=== PATIENT | male | born 1990 | race Caucasian/White ===

== ENCOUNTER 2016-08-17 10:23 | Day surgery (SDC) | payer BC ==
[~2016-08-17 10:23] MED LIST: Lactated Ringers 1,000 ML IV SCH; Sodium Chloride 0.9% 10 ML Syringe FLUSH PRN
[2016-08-17] MEDS ORDERED: fentaNYL 100 MCG/2 ML SDV ONE ×2 (11:10→11:32)
[2016-08-17] MEDS ORDERED: Propofol 200 MG/20 ML SDV ONE ×2 (11:10→11:33)
[2016-08-17] MEDS ORDERED: Lidocaine 2% 5 ML SDV ONE (11:10)
[2016-08-17] MEDS ORDERED: Midazolam 1 MG/ML 2 ML SDV ONE ×2 (11:10→11:32)
--- NOTE | 2016-08-17 11:39 | PCM.PN ---
- General Info Date of Service: 08/17/16 - Review of Systems Systems Review Comment:: 26-year-old male referred for EGD and colonoscopy. He has a history of repeated episodes of diverticulitis-like symptoms. He says that he has been treated for 5 times for this in the last few years. He recently completed a course of antibiotics for this. Also the patient has some symptoms of dysphasia. Heavy her foods sometimes get stuck when he is trying to swallow. I have discussed the proposed EGD and colonoscopy with the patient. Risks such as but not limited to bleeding and GI injury or reviewed. The patient appears to understand and agrees to proceed. The possibility of esophageal dilation is also reviewed with the patient and he agrees to this if it appears to be indicated. - Patient Data Vitals - most recent: Last Vital Signs Temp 97.2 F 08/17/16 10:55 Pulse 76 08/17/16 10:55 Resp 20 08/17/16 10:55 BP 129/82 08/17/16 10:55 Pulse Ox 97 08/17/16 10:55 Weight - most recent: 97.522 kg Med Orders - Current: Current Medications Lactated Ringer's (Ringers, Lactated) 1,000 mls @ 125 mls/hr IV ASDIRECTED HARRISON Last Admin: 08/17/16 11:13 Dose: 125 mls/hr Sodium Chloride (Saline Flush) 10 ml FLUSH ASDIRECTED PRN PRN Reason: Keep Vein Open - Problem List Review Problem List Initiated/Reviewed/Updated: Yes - Assessment Assessment:: Dysphagia Recurrent Diverticulitis - Plan Plan:: EGD and Colonoscopy
--- NOTE | 2016-08-17 12:40 | PCM.OPNOTE ---
- General Post-Op/Procedure Note Date of Surgery/Procedure: 08/17/16 Operative Procedure(s): EGD with Biopsy and Colonoscopy Findings: Normal Upper and Lower endoscopy Pre Op Diagnosis: Dysphagia. History of possible diverticulitis Post-Op Diagnosis: Normal Upper and Lower Endoscopy Anesthesia Technique: MAC Primary Surgeon: Alberto Mcgill Pathology: Biopsies of Gastric Antrum Output, Urine Amount: 0 EBL in mLs: 2 Complications: None Condition: Good Free Text/Narrative:: Intake & Output 08/16/16 08/17/16 08/17/16 22:59 06:59 14:59 Intake Total 900 Balance 900
[2016-08-17 15:00] VITALS: BP 122/84
--- NOTE | 2016-08-17 18:15 | OR ---
Date of Procedure: 08/17/2016 PREOPERATIVE DIAGNOSES: Dysphagia and history of diverticulitis. POSTOPERATIVE DIAGNOSIS: Normal upper and lower endoscopy. INDICATIONS FOR SURGERY: This is a 26-year-old male who has been having some symptoms of dysphagia. He also has had episodes of left lower quadrant abdominal pain and has been treated for diverticulitis multiple times in the past. FINDINGS: On upper endoscopy, the esophagus, stomach, and duodenum appeared normal. There was no visible evidence of inflammation in these structures. The Z-line is distinct and without visible evidence of stenosis. No ulcerations are seen. The patient's colon and rectum appeared normal during colonoscopy as does his terminal ileum. DESCRIPTION OF PROCEDURE: The patient was taken to the operating room. He was given intravenous sedation and with him in the left lateral decubitus position, the esophagus was intubated with the Olympus gastroscope. This was carefully advanced through the esophagus, stomach, and into the duodenum, where examination to the 3rd portion was performed. After carefully examining the duodenum, the scope was withdrawn back into the stomach, where full examination, including retroflexed examination of the fundus has been carried out. Biopsies of the antrum were taken to rule out H. pylori. The GE junction and esophagus were then re-examined as the scope was withdrawn. Attention was turned to colonoscopy. Digital rectal exam was performed showing no rectal masses. The Olympus colonoscope was inserted into the rectum. Retroflexed examination of the rectal canal was performed. The scope was then carefully advanced under direct visualization through the entire length of the colon until the cecum was reached. Cecal acquisition was confirmed by noting the normal internal cecal anatomy including the appendiceal orifice and ileocecal valve. The ileocecal valve was cannulated and the terminal ilium was also examined and it appeared normal without visible signs of inflammation. The scope was then slowly withdrawn sequentially re-examining the colonic segments until the entire colon and rectum had been fully examined. The scope was removed and with no sign of any complications. The patient was taken from the operating room in satisfactory condition. ESTIMATED BLOOD LOSS: 2 mL. COMPLICATIONS: None. PROGNOSIS: Good. RITA Mcgill MD /[id number]
== END 2016-08-17 13:28 | disposition home or self-care (01) ==
LOC: LL.SDS 10:23
PROVIDERS: ATTEND Surgery
DX: K29.50 Unspecified chronic gastritis without bleeding (principal); Z87.19 Personal history of other diseases of the digestive system
CPT/HCPCS: 43239; 45378; J2250; J2704; J3010; J7120

== ENCOUNTER 2016-09-01 13:27 | Inpatient (IN) | payer BC ==
--- NOTE | 2016-09-01 13:45 | EDM.PDOC ---
ED HPI GENERAL MEDICAL PROBLEM - General Chief Complaint: Abdominal Pain Stated Complaint: abdominal pain Time Seen by Provider: 09/01/16 13:40 Source of Information: Reports: Patient, Old Records ([facility] EMR. No paper hospital chart available.) History Limitations: Reports: No Limitations - History of Present Illness INITIAL COMMENTS - FREE TEXT/NARRATIVE: The patient drove himself to the emergency room via private automobile for evaluation of progressive left lower quadrant abdominal pain with symptoms starting at about 20:00 hours yesterday evening. He also noted some dysuria and increased urinary frequency since about 6:30 a.m. this morning. No history of colic, gross hematuria, or other UTI symptoms, however. The patient does have a history of recurrent colitis versus questionable diverticulitis since December 2013 as below with recent normal EGD and colonoscopy on 08/17/16 as below with exception of some borderline gastritis. The patient [place] Lexy Swan [place]-C[place] [facility] [place] and started on Cipro with one dose taken to this point. No x-rays or blood work was conducted in that clinic this morning by his history. He has not taken any other medications for his symptoms , including OTC stomach medications, antipyretic medications, etc. to this point. No recent history of other abdominal pain, heartburn, nausea, diarrhea, melena, gross hematochezia, or any food intolerance, including fatty foods, etc. with normal bowel movement earlier this morning. The patient also denies any recent fever, cough, wheezing, dyspnea, etc.. He rates his discomfort at 9/ 10 and is affected by movement. Onset: Gradual Onset Date: 08/31/16 Onset Time: 20:00 Duration: Getting Worse, Intermittent Location: Reports: Abdomen. 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 Denies: Allergic Rhinitis, Cataract, Glaucoma, Hard of Hearing, Impaired Vision, Macular Degeneration, Retinal Detachment Other HEENT History: Patient previously wore glasses however note LASIK surgery as below, recurrent otitis media as a child with surgery as below Cardiovascular History: Reports: None, Other (See Below). Denies: Aneurysm, Arrhythmia, Blood Clots/VTE/DVT, CAD, Heart Murmur, High Cholesterol, Hypertension, ID, PVD, Syncope Other Cardiovascular History: uncertain about his cholesterol status Respiratory History: Reports: Asthma, Other (See Below). Denies: COPD, Intubation, Previous, PE, Pneumothorax, Sleep Apnea, TB Other Respiratory History: Childhood asthma with no current therapy required Gastrointestinal History: Reports: Diverticulosis, Gastritis, GERD, Other (See Below). Denies: Celiac Disease, Cholelithiasis, Chronic Constipation, Chronic Diarrhea, Colon Polyp, Fecal Incontinence, GI Bleed, Hepatitis, Helicobacter Pylori, Hiatal Hernia, Inflammatory Bowel Disease, Irritable Bowel Syndrome, Jaundice, Pancreatitis, PUD Other Gastrointestinal History: Mild gastritis diagnosed by EGD on 08/17/16 with negative H. pylori biopsy at that time, questionable borderline diverticulosis with history of recurrent sigmoid colitis since December 29, 2013 with no colon biopsies taken to this point, history of nonspecific dysphagia with negative ETT as above Genitourinary History: Reports: None. Denies: Acute Renal Failure, BPH, Chronic Renal Insuffiency, Renal Calculus, STD, Urinary Incontinence, UTI, Recurrent Musculoskeletal History: Reports: Fracture, Other (See Below). Denies: Arthritis, Back Pain, Chronic, Gout, Neck Pain, Chronic, Osteoarthritis, RA, SLE Other Musculoskeletal History: Left Sided clavicular fracture at age 17 Neurological History: Reports: None. Denies: Cerebral Aneurysms, Concussion, CVA, Headaches, Chronic, Head Trauma, Migraines, MS, Neuropathy, Peripheral, Parkinson's, Seizure, TIA Psychiatric History: Reports: None. Denies: Abuse, Victim of, ADD, ADHD, Addiction, Anxiety, Depression, Emotional Problems, Psych Hospitalization(s), PTSD, Suicide Attempt, Suicidal Ideation Endocrine/Metabolic History: Reports: None. Denies: Diabetes, Type I, Diabetes , Type II, Hypothyroidism, IDDM Hematologic History: Reports: None. Denies: Anemia, Blood Transfusion(s), Iron Deficiency Immunologic History: Reports: None. Denies: AIDS, HIV, SLE Oncologic (Cancer) History: Reports: None. Denies: Basal Cell Carcinoma, Colon , Hodgkin's Lymphoma, Leukemia, Lymphoma, Malignant Melanoma, Non-Hodgkin's Lymphoma, Squamous Cell Carcinoma Dermatologic History: Reports: None. Denies: Eczema, Psoriasis - Infectious Disease History Infectious Disease History: Reports: Chicken Pox. Denies: C-Difficile, Helicobacter Pylori, Measles, Meningitis, Mononucleosis, MRSA, Mumps, Pertussis (Whooping Cough), Rheumatic Fever, RSV, Rubella, Scarlet Fever, Shingles, TB, VRE - Past Surgical History Head Surgeries/Procedures: Reports: None HEENT Surgical History: Reports: LASIK, Myringotomy w Tube(s), Other (See Below) . Denies: Adenoidectomy, Eye Surgery, Laser Surgery, Naso-Sinus Surgery, Oral Surgery, Tonsillectomy Other HEENT Surgeries/Procedures: bilateral PE tubes 3 in director of early childhood, LASIK in 2014 Cardiovascular Surgical History: Reports: None. Denies: Varicose Respiratory Surgical History: Reports: None. Denies: Thoracentesis GI Surgical History: Reports: Colonoscopy, EGD, Other (See Below). Denies: Appendectomy, Cholecystectomy, Hernia, Abdominal, Hernia, Inguinal, Hernia Repair/Other, Polypectomy Other GI Surgeries/Procedures: EGD and colonoscopy on 08/17/16 Male Surgical History: Reports: Circumcision, Other (See Below). Denies: Vasectomy Other Male Surgeries/Procedures: Circumcision as an infant Endocrine Surgical History: Reports: None. Denies: Thyroid Biopsy Neurological Surgical History: Reports: None. Denies: C-Spine, Laminectomy, Lumbar Spine, Sacral Spine, Spinal Fusion, Vertebroplasty Musculoskeletal Surgical History: Reports: None. Denies: Arthroscopic Procedure , Carpal Tunnel, Ganglion Cyst, Joint Replacement, ORIF, Shoulder Surgery Oncologic Surgical History: Reports: None Dermatological Surgical History: Reports: None - Past Imaging History Past Imaging History: Reports: CAT Scan (CT scan of the abdomen and pelvis with contrast on 12/29/13) Social & Family History - Family History HEENT: Reports: Glaucoma, Other (See Below). Denies: Macular Degeneration, Retinal Detachment Other HEENT Family History: Maternal grandmother with glaucoma Cardiac: Reports: None. Denies: Afib, Aneurysm, Arrhythmia, Blood Clots/VTE/DVT , Bypass, CAD, Heart Failure, High Cholesterol, Hypertension, ID, Pacemaker, PVD /COD, Stent, Syncope Respiratory: Reports: Asthma, Other (See Below). Denies: COPD, PE, Pneumothorax , Sleep Apnea, TB Other Respiratory Family Hisory: Maternal grandmother with asthma GI: Reports: None. Denies: Celiac Disease, Cholelithiasis, Colon Polyps, Diverticulitis, Diverticulosis, GERD, GI bleed, Hepatitis, Inflammatory Bowel Disease, Irritable Bowel Syndrome, Pancreatitis, PUD : Reports: None. Denies: Dialysis, Renal Calculus, Renal Disease/ Insufficiency OBGYN: Reports: None. Denies: Dysfunctional uterine bleeding, Endometriosis, Fibroids, Recurrent Spontaneous Musculoskeletal: Reports: None. Denies: Arthritis, Gout, Osteoarthritis, RA, SLE Neurological: Reports: None. Denies: Alzheimers Disease, Cerebral Aneurysms, CVA, Dementia, Migraines, MS, Neuropathy, Peripheral, Parkinson's, Seizure, TIA Psychiatric: Reports: None. Denies: Abuse, Victim of, ADD, ADHD, Anxiety, Depression, PTSD, Suicide Attempt Endocrine/Metabolic: Denies: Diabetes, Type I, Diabetes, type II, Hypoparathyroidism, Hypothyroidism, IDDM Hematologic: Reports: None. Denies: Anemia, Transfusion Reaction Immunologic: Reports: None. Denies: AIDS, HIV, SLE Dermatologic: Reports: None. Denies: Eczema, Psoriasis Oncologic: Reports: None, Other (See Below). Denies: Colon, Hodgkin's Lymphoma , Leukemia, Lung, Lymphoma, Metastatic, Non-Hodgkin's Lymphoma, Prostate, Skin Other Oncologic Family History: Mother with thyroid cancer in her late 30s Other Family History: The patient is aware of his family history only on the maternal side - Tobacco Use Smoking Status *Q: Never Smoker Smoking Cessation Information Provided To Patient: No Second Hand Smoke Exposure: No Second Hand Smoke Education Provided: No - Caffeine Use Caffeine Use: Reports: Coffee (2 cups per day). Denies: Energy Drinks, Soda, Tea - Alcohol Use Alcohol Use History: Yes Days Per Week of Alcohol Use: 3 (No previous DWIs, problems with alcohol abuse, etc.) Number of Drinks Per Day: 4 (Usually beer) Total Drinks Per Week: 12 Date of Last Drink: 08/28/16 Alcohol Use in Last Twelve Months: Yes Alcohol Use Frequency: Socially - Recreational Drug Use Recreational Drug Use: No Drug Use in Last 12 Months: No Recreational Drug Type: Denies: Amphetamines (Speed), Heroin, LSD (Acid), Marijuana/Hashish, Methamphetamine, Morphine - Sexual History Sexual History: Reports: Single Partner, Other (See Below) Other Sexual History Comment: The patient does practice safe sex - Living Situation & Occupation Living situation: Reports: Single (No children), Alone 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 Denies: Fever, Chills, Malaise, Weakness , Fatigue, Night Sweats, Diaphoresis, Decreased Appetite, Weight Loss, Weight Gain HEENT: Reports: No Symptoms. Denies: Contact Lenses, Dental Pain, Ear Discharge , Ear Pain, Glasses, Hearing Loss, Rhinitis, Sinus Problem, Throat Pain, Vertigo , Vision Change Respiratory: Reports: No Symptoms. Denies: Shortness of Breath, Wheezing, Pleuritic Chest Pain, Cough, Hemoptysis Cardiovascular: Reports: No Symptoms. Denies: Chest Pain, Blood Pressure Problem (Pressure somewhat elevated in the emergency room with no history of hypertension), Claudication, Dyspnea on Exertion, Edema, Lightheadedness, Palpitations, PND, Syncope Endocrine: Reports: No Symptoms. Denies: Fatigue GI/Abdominal: Reports: Abdominal Pain. Denies: Anorexia, Black Stool, Bloody Stool, Constipation, Diarrhea, Decreased Appetite, Difficulty Swallowing, Distension, Flatus, Hematemesis, Hematochezia, Melena, Mucous in Stool, Nausea, Stool Incontinence, Vomiting : Reports: Dysuria, Frequency. Denies: Flank Pain, Hematuria, Incontinence, Pain, Urgency, Urinary Retention Musculoskeletal: Reports: No Symptoms. Denies: Neck Pain, Shoulder Pain, Arm Pain, Back Pain, Leg Pain Skin: Reports: No Symptoms. Denies: Jaundice, Pallor, Diaphoresis Neurological: Reports: No Symptoms. Denies: Confusion, Dizziness, Headache, Numbness, Paresthesia, Tingling, Weakness Psychiatric: Reports: No Symptoms. Denies: Agitation, Anxiety, Confusion, Depression Hematologic/Lymphatic: Reports: No Symptoms Immunologic: Reports: No Symptoms ED EXAM, GI/ABD - Physical Exam Exam: See Below Exam Limited By: No Limitations General Appearance: Alert, WD/WN, No Apparent Distress Eyes: Bilateral: Normal Appearance (No nystagmus), EOMI (PERRLA) Ears: Normal External Exam, Normal Canal, Hearing Grossly Normal, Normal TMs ( With the exception of scar tissue laterally from previous infections and PE tubes) Nose: Normal Inspection, Normal Mucosa, No Blood. No: Clear Rhinorrhea Throat/Mouth: Normal Inspection, Normal Lips, Normal Teeth, Normal Gums, Normal Oropharynx, Normal Voice, No Airway Compromise. No: Dysphagia, Perioral Cyanosis Head: Atraumatic, Normocephalic. No: Facial Swelling, Facial Tenderness, Sinus Tenderness Neck: Normal Inspection, Supple, Non-Tender, Full Range of Motion. No: Carotid Bruit, Lymphadenopathy (L), Lymphadenopathy (R), Thyromegaly Respiratory/Chest: No Respiratory Distress, Lungs Clear, Normal Breath Sounds, No Accessory Muscle Use, Chest Non-Tender. No: Pleural Rub, Retractions Cardiovascular: Normal Peripheral Pulses, Regular Rate, Rhythm, No Edema, No Gallop, No JVD, No Murmur, No Rub. No: Gallop/S3, Gallop/S4, Friction Rub GI/Abdominal: Normal Bowel Sounds, No Organomegaly, No Distention, No Abnormal Bruit, No Mass, Pelvis Stable, Tenderness (Moderate left lower quadrant palpation pain), Rebound (Borderline). No: Guarding (Male) Exam: Normal Prostate Rectal (Males) Exam: Normal Exam, Normal Rectal Tone, Prostate Normal, Heme - Stool. No: Black Stool (Brown stool), Hemorrhoids, Mass, Tenderness (No Theo space tenderness) Back Exam: Normal Inspection, Full Range of Motion. No: CVA Tenderness (L), CVA Tenderness (R), Muscle Spasm Extremities: Normal Inspection, Normal Range of Motion, Non-Tender, No Pedal Edema, Normal Capillary Refill. No: Jeffery's Sign Neurological: Alert, Oriented, CN II-XII Intact, Normal Cognition, Normal Gait, Normal Reflexes (Negative Babinski's), No Motor/Sensory Deficits Psychiatric: Normal Affect, Normal Mood Skin Exam: Warm, Dry, Intact, Normal Color, No Rash. No: Diaphoretic, Ecchymosis, Jaundice, Lymphangitis, Petechiae, Tattoo(s), Wound/Incision Lymphatic: No Adenopathy Course - Vital Signs Last Recorded V/S: Last Vital Signs Temp 37.0 C 09/01/16 13:39 Pulse 73 09/01/16 13:39 Resp 16 09/01/16 13:39 BP 156/94 H 09/01/16 13:39 Pulse Ox 100 09/01/16 13:39 Vital Signs - 24 hr 09/01/16 13:39 Temperature [ 37.0 C Oral] Pulse, 73 Peripheral [ Left Pulse Oximetry] Respiratory 16 Rate Blood Pressure 156/94 H [Left Upper Arm ] O2 Sat by Pulse 100 Oximetry - Orders/Labs/Meds Orders: Active Orders 24 hr Category Date Time Status Peripheral IV Care [RC] . DIRECTED Care 09/01/16 14:00 Active Nothing Per Oral Diet [DIET] Diet 09/01/16 Breakfast Active Abdomen Pelvis w Cont [CT] Stat Exams 09/01/16 14:00 Taken CULTURE BLOOD [BC] Stat Lab 09/01/16 14:10 Received CULTURE BLOOD [BC] Stat Lab 09/01/16 14:20 Received CULTURE URINE [RM] Stat Lab 09/01/16 14:00 Received H PYLORI STOOL ANTIGEN [MREF] Urgent Lab 09/01/16 14:00 Uncollected Sodium Chloride 0.9% [Saline Flush] Med 09/01/16 14:00 Active 10 ml FLUSH ASDIRECTED PRN cefTRIAXone [Rocephin] 1 gm Med 09/01/16 14:15 Active Sodium Chloride 0.9% [Normal Saline] 100 ml IV Q12H metroNIDAZOLE/Normal Saline [Flagyl 500 MG in NS 100 ML Med 09/01/16 15:15 Active ] 500 mg Premix Bag 1 bag IV Q8H Blood Culture x2 Reflex Set [OM.PC] Urgent Oth 09/01/16 14:00 Ordered Obtain Past Medical Record [OM.PC] Urgent Oth 09/01/16 14:00 Active Peripheral IV Insertion Adult [OM.PC] Stat Oth 09/01/16 14:00 Ordered Resuscitation Status Stat Resus Stat 09/01/16 14:00 Ordered Medication Orders Ceftriaxone Sodium 1 gm/ (Sodium Chloride) 100 mls @ 200 mls/hr IV Q12H COUNT INCLUDES THE [facility] Last Admin: 09/01/16 15:02 Dose: 200 mls/hr Metronidazole 500 mg/ Premix 100 mls @ 100 mls/hr IV Q8H COUNT INCLUDES THE [facility] Last Admin: 09/01/16 15:53 Dose: 100 mls/hr Sodium Chloride (Saline Flush) 10 ml FLUSH ASDIRECTED PRN PRN Reason: Keep Vein Open Last Admin: 09/01/16 15:53 Dose: 10 ml Admin: 09/01/16 14:32 Dose: 10 ml Labs: Laboratory Tests 09/01/16 09/01/16 09/01/16 Range/Units 14:00 14:10 14:10 WBC 8.2 (4.0-10.2) K/uL RBC 5.12 (4.33-5.41) M/uL Hgb 15.4 (13.1-16.8) g/dL Hct 44.6 (39.0-49.0) % MCV 87.1 (84.0-98.0) fL MCH 30.1 (28.2-33.3) pg MCHC 34.5 (31.7-36.0) g/dL RDW 13.2 (11.2-14.1) % Plt Count 145 L (150-350) K/uL Neut % (Auto) 61.5 (45.0-80.0) % Lymph % (Auto) 29.5 (10.0-50.0) % [place] % (Auto) 6.9 (2.0-14.0) % Eos % (Auto) 1.6 (0.0-5.0) % Baso % (Auto) 0.5 (0.0-2.0) % Neut # (Auto) 5.02 (1.40-7.00) K/uL Lymph # (Auto) 2.41 (0.50-3.50) K/uL [place] # (Auto) 0.56 (0.00-1.00) K/uL Eos # (Auto) 0.13 (0.00-0.50) K/uL Baso # (Auto) 0.04 (0.00-0.20) K/uL PT (9.8-11.7) SEC INR APTT (23.5-30.0) SEC Sodium (136-145) mmol/L Potassium (3.5-5.1) mmol/L Chloride (98-107) mmol/L Carbon Dioxide (21.0-32.0) mmol/L BUN (7-18) mg/dL Creatinine (0.51-1.17) mg/dL Est Cr Clr Drug Dosing Estimated GFR (MDRD) mL/min Glucose (74-106) mg/dL Lactic Acid (0.4-2.0) mmol/L Uric Acid (2.6-7.2) mg/dL Calcium (8.5-10.1) mg/dL Magnesium (1.8-2.4) mg/dL Total Bilirubin (0.2-1.0) mg/dL AST (15-37) U/L ALT (12-78) U/L Alkaline Phosphatase (46-116) IU/L Total Protein (6.4-8.2) g/dL Albumin (3.4-5.0) g/dL Amylase 35 (25-115) U/L Lipase (73-393) U/L Specimen Type Urincc Urine Color Light yellow Urine Appearance Clear Urine pH 7.0 (5.0-9.0) Ur Specific [place] 1.015 (1.005-1.030) Urine Protein Negative (NEGATIVE) mg/dL Urine Glucose (UA) Negative (NEGATIVE) mg/dL Urine Ketones Negative (NEGATIVE) mg/dL Urine Occult Blood Trace-intact H (NEGATIVE) Urine Nitrite Negative (NEGATIVE) Urine Bilirubin Negative (NEGATIVE) Urine Urobilinogen 0.2 (0.2-1.0) E.U./dL Ur Leukocyte Esterase Negative (NEGATIVE) Urine RBC 0-5 /HPF Urine WBC 0-5 /HPF Ur Epithelial Cells Rare /LPF Urine Bacteria Rare (NONE TO FEW) /HPF 09/01/16 09/01/16 09/01/16 Range/Units 14:10 14:10 14:10 WBC (4.0-10.2) K/uL RBC (4.33-5.41) M/uL Hgb (13.1-16.8) g/dL Hct (39.0-49.0) % MCV (84.0-98.0) fL MCH (28.2-33.3) pg MCHC (31.7-36.0) g/dL RDW (11.2-14.1) % Plt Count (150-350) K/uL Neut % (Auto) (45.0-80.0) % Lymph % (Auto) (10.0-50.0) % [place] % (Auto) (2.0-14.0) % Eos % (Auto) (0.0-5.0) % Baso % (Auto) (0.0-2.0) % Neut # (Auto) (1.40-7.00) K/uL Lymph # (Auto) (0.50-3.50) K/uL [place] # (Auto) (0.00-1.00) K/uL Eos # (Auto) (0.00-0.50) K/uL Baso # (Auto) (0.00-0.20) K/uL PT 11.0 (9.8-11.7) SEC INR 1.0 APTT 28.5 (23.5-30.0) SEC Sodium 141 (136-145) mmol/L Potassium 3.8 (3.5-5.1) mmol/L Chloride 103 (98-107) mmol/L Carbon Dioxide 30.2 (21.0-32.0) mmol/L BUN 14 (7-18) mg/dL Creatinine 1.15 (0.51-1.17) mg/dL Est Cr Clr Drug Dosing TNP Estimated GFR (MDRD) > 60 mL/min Glucose 93 (74-106) mg/dL Lactic Acid 0.7 (0.4-2.0) mmol/L Uric Acid 7.9 H (2.6-7.2) mg/dL Calcium 9.2 (8.5-10.1) mg/dL Magnesium 1.8 (1.8-2.4) mg/dL Total Bilirubin 0.6 (0.2-1.0) mg/dL AST 21 (15-37) U/L ALT 30 (12-78) U/L Alkaline Phosphatase 78 (46-116) IU/L Total Protein 8.3 H (6.4-8.2) g/dL Albumin 4.4 (3.4-5.0) g/dL Amylase (25-115) U/L Lipase 84 (73-393) U/L Specimen Type Urine Color Urine Appearance Urine pH (5.0-9.0) Ur Specific [place] (1.005-1.030) Urine Protein (NEGATIVE) mg/dL Urine Glucose (UA) (NEGATIVE) mg/dL Urine Ketones (NEGATIVE) mg/dL Urine Occult Blood (NEGATIVE) Urine Nitrite (NEGATIVE) Urine Bilirubin (NEGATIVE) Urine Urobilinogen (0.2-1.0) E.U./dL Ur Leukocyte Esterase (NEGATIVE) Urine RBC /HPF Urine WBC /HPF Ur Epithelial Cells /LPF Urine Bacteria (NONE TO FEW) /HPF Urine specimen set up for culture and sensitivity Blood cultures 2 collected Microbiology 09/01/16 14:00 Stool Occult Blood (DIANDRA) - Final Stool / Feces NEGATIVE OCCULT BLOOD Meds: Medications Generic Name Dose Route Start Last Admin Trade Name Freq PRN Reason Stop Dose Admin Ceftriaxone Sodium 1 gm/ 100 mls @ 200 mls/hr 09/01/16 14:15 09/01/16 15:02 Sodium Chloride IV 200 mls/hr Q12H HARRISON Administration Metronidazole 500 mg/ Premix 100 mls @ 100 mls/hr 09/01/16 15:15 09/01/16 15: 53 IV 100 mls/hr Q8H HARRISON Administration Sodium Chloride 10 ml 09/01/16 14:00 09/01/16 15:53 Saline Flush FLUSH 10 ml ASDIRECTED PRN Administration Keep Vein Open Discontinued Medications Generic Name Dose Route Start Last Admin Trade Name Freq PRN Reason Stop Dose Admin Famotidine 40 mg 09/01/16 14:00 09/01/16 14:32 Pepcid IVPUSH 09/01/16 14:01 40 mg ONETIME ONE Administration Iopamidol 100 ml 09/01/16 14:28 09/01/16 15:32 Isovue-300 (61%) IVPUSH 09/01/16 14:29 100 ml ONETIME ONE Administration Iopamidol Confirm 09/01/16 15:02 Isovue-300 (61%) Administered 09/01/16 15:03 Dose 100 ml .ROUTE .STK-MED ONE Pantoprazole Sodium 40 mg 09/01/16 14:00 09/01/16 14:32 Protonix Iv IVPUSH 09/01/16 14:01 40 mg ONETIME ONE Administration - Radiology Interpretation Free Text/Narrative:: Telephone consultation at 16:00 hours with the radiology department at [facility]. Focal area of mild to moderate mucosal inflammation at the border of the descending colon and beginning portion of the sigmoid colon with possible multiple small diverticuli in this area. No evidence of abscess, perforation, etc. No other colon involvement or other diverticuli noted in other colon segments CT Results Date: 09/01/16 CT Results Time: 16:00 Departure - Departure Time of Disposition: 16:20 Disposition: Admitted As Inpatient 67 Condition: Good Clinical Impression: Colitis, Peptic reflux disease, Peritonitis, Hyperuricemia Abdominal pain Qualifiers: Abdominal location: left lower quadrant Qualified Code(s): R10.32 - Left lower quadrant pain - Discharge Information Referrals: Lexy Swan PA [Primary Care Provider] - Forms: ED Department Discharge Care Plan Goals: See plan - Problem List & Annotations (1) Abdominal pain SNOMED Code(s): 23944325 Code(s): R10.9 - UNSPECIFIED ABDOMINAL PAIN Status: Acute Priority: High Current Visit: Yes Onset Date: 08/31/16 Annotation/Comment:: CT scan results as above. Evidence of beginning peritonitis by clinical exam on initial evaluation by me in the emergency room. Various therapeutic options were discussed with the patient, who does agree to inpatient therapy. Secondary to clinical findings IV Rocephin and IV Flagyl were initiated in the emergency room. Blood cultures 2 were collected. No leukocytosis to this point however peritoneal findings as above. Repeat blood work in the a.m. with consideration of abdominal x-rays prior to discharge Qualifiers: Abdominal location: left lower quadrant Qualified Code(s): R10.32 - Left lower quadrant pain (2) Peritonitis SNOMED Code(s): 39795841, 14571970, 481653814 Code(s): K65.9 - PERITONITIS, UNSPECIFIED Status: Acute Priority: High Current Visit: Yes Onset Date: 09/01/16 Annotation/Comment:: As above (3) Colitis SNOMED Code(s): 47397524 Code(s): K52.9 - NONINFECTIVE GASTROENTERITIS AND COLITIS, UNSPECIFIED Status: Acute Priority: High Current Visit: Yes Annotation/Comment:: History of recurrent sigmoid colitis versus questionable diverticulitis initially diagnosed by CT scan on 12/29/13. Note recent EGD and colonoscopy results as above. Therapy initiated in the emergency room as above. No family history of inflammatory bowel disease with no colonic biopsies taken to this point. Consider GI referral for further consultation and possible colonic biopsies and treatment at discharge depending on his clinical course. Patient may benefit from IV Solu-Medrol therapy, however this will be held for the time being. He may also benefit from a trial on sulfasalazine, etc. secondary to his recurrent colitis/diverticulitis (4) Diverticulitis large intestine SNOMED Code(s): 9702702 Code(s): K57.32 - DVTRCLI OF LG INT W/O PERFORATION OR ABSCESS W/O BLEEDING Status: Acute Priority: High Current Visit: Yes Onset Date: ~08/31/16 Annotation/Comment:: Diverticulitis versus colitis as above. Qualifiers: Diverticulitis bleeding: without bleeding Diverticulitis complication: without perforation or abscess Qualified Code(s): K57.32 - Diverticulitis of large intestine without perforation or abscess without bleeding (5) Peptic reflux disease SNOMED Code(s): 65773024 Code(s): K21.9 - GASTRO-ESOPHAGEAL REFLUX DISEASE WITHOUT ESOPHAGITIS Status: Chronic Priority: Medium Current Visit: Yes Annotation/Comment:: No true GERD symptoms at this time, although high-dose IV Pepcid and IV Protonix were given in the emergency room as GI prophylaxis (6) Hyperuricemia SNOMED Code(s): 21327806 Code(s): E79.0 - HYPERURICEMIA W/O SIGNS OF INFLAM ARTHRIT AND TOPHACEOUS DIS Status: Acute Priority: Medium Current Visit: Yes Onset Date: ~09/01 Annotation/Comment:: Newly diagnosed today without history of gout attacks , significant arthritic symptoms currently or in the past, etc. Secondary to possibility of colitis additional in a and rheumatoid factor will also be collected tomorrow - Problem List Review Problem List Initiated/Reviewed/Updated: Yes - My Orders Last 24 Hours: My Active Orders 09/01/16 14:00 Peripheral IV Care [RC] . DIRECTED Abdomen Pelvis w Cont [CT] Stat CULTURE URINE [RM] Stat H PYLORI STOOL ANTIGEN [MREF] Urgent Sodium Chloride 0.9% [Saline Flush] 10 ml FLUSH ASDIRECTED PRN Blood Culture x2 Reflex Set [OM.PC] Urgent Obtain Past Medical Record [OM.PC] Urgent Peripheral IV Insertion Adult [OM.PC] Stat Resuscitation Status Stat 09/01/16 14:10 CULTURE BLOOD [BC] Stat 09/01/16 14:15 cefTRIAXone [Rocephin] 1 gm Sodium Chloride 0.9% [Normal Saline] 100 ml IV Q12H 09/01/16 14:20 CULTURE BLOOD [BC] Stat 09/01/16 15:15 metroNIDAZOLE/Normal Saline [Flagyl 500 MG in NS 100 ML] 500 mg Premix Bag 1 bag IV Q8H 09/01/16 Breakfast Nothing Per Oral Diet [DIET] - Assessment/Plan Admission H&P: Please use this note as an admission H&P Last 24 Hours: My Active Orders 09/01/16 14:00 Peripheral IV Care [RC] . DIRECTED Abdomen Pelvis w Cont [CT] Stat CULTURE URINE [RM] Stat H PYLORI STOOL ANTIGEN [MREF] Urgent Sodium Chloride 0.9% [Saline Flush] 10 ml FLUSH ASDIRECTED PRN Blood Culture x2 Reflex Set [OM.PC] Urgent Obtain Past Medical Record [OM.PC] Urgent Peripheral IV Insertion Adult [OM.PC] Stat Resuscitation Status Stat 09/01/16 14:10 CULTURE BLOOD [BC] Stat 09/01/16 14:15 cefTRIAXone [Rocephin] 1 gm Sodium Chloride 0.9% [Normal Saline] 100 ml IV Q12H 09/01/16 14:20 CULTURE BLOOD [BC] Stat 09/01/16 15:15 metroNIDAZOLE/Normal Saline [Flagyl 500 MG in NS 100 ML] 500 mg Premix Bag 1 bag IV Q8H 09/01/16 Breakfast Nothing Per Oral Diet [DIET] Assessment:: As above Plan: As above. Extensive precautions were given to the patient, who is in agreement with the treatment plan. The patient will require about 3 days of inpatient/ acute care secondary to multiple health problems as above. Son pérez physician assumes care in the a.m.
[2016-09-01] MEDS ORDERED: Pantoprazole 40 MG Vial IVPUSH ONE (14:00)
[2016-09-01] MEDS ORDERED: Famotidine 20 MG/2 ML SDV IVPUSH ONE (14:00)
[2016-09-01] MEDS ORDERED: Iopamidol 612 MG/ML 100 ML Bottle IVPUSH ONE (14:28)
[2016-09-01] MEDS: Sodium Chloride 0.9% 10 ML Syringe FLUSH PRN ×2 (14:32→15:53)
[2016-09-01 14:36] LABS: CHLORIDE,CL 103 mmol/L (98-107); SODIUM,NA 141 mmol/L (136-145)
[2016-09-01] MEDS ORDERED: Iopamidol 612 MG/ML 100 ML Bottle ONE (15:02)
[2016-09-01] MEDS: cefTRIAXone 1 GM in Sodium Chloride 0.9% 100 ML IV SCH (15:02)
[2016-09-01] MEDS: metroNIDAZOLE/Normal Saline 500 MG in Premix Bag 1 BAG IV SCH ×2 (15:53→23:40)
[2016-09-01] MEDS ORDERED: Ondansetron 4 MG/2 ML SDV IVPUSH PRN (16:31)
[2016-09-01] MEDS ORDERED: HYDROmorphone 1 MG/ML Syringe IVPUSH PRN (16:35)
[2016-09-01] MEDS: Sodium Chloride 0.9% 10 ML Syringe FLUSH SCH (19:17)
[2016-09-01] MEDS ORDERED: Temazepam 15 MG Cap PO PRN (20:00)
[2016-09-01] MEDS: traMADol 50 MG Tab PO PRN (23:48)
[2016-09-01] MEDS: Acetaminophen 325 MG Tab PO PRN (23:48)
[2016-09-02] MEDS: cefTRIAXone 1 GM in Sodium Chloride 0.9% 100 ML IV SCH ×2 (02:46→15:20)
[2016-09-02] MEDS: Sodium Chloride 0.9% 10 ML Syringe FLUSH PRN ×6 (02:47→23:24)
[2016-09-02 07:39] LABS: CHLORIDE,CL 104 mmol/L (98-107); SODIUM,NA 140 mmol/L (136-145)
[2016-09-02] MEDS: metroNIDAZOLE/Normal Saline 500 MG in Premix Bag 1 BAG IV SCH ×3 (07:42→23:17)
[2016-09-02] MEDS: Sodium Chloride 0.9% 10 ML Syringe FLUSH SCH ×2 (07:43→20:46)
[2016-09-02] MEDS: Acetaminophen 325 MG Tab PO PRN (15:21)
[2016-09-02] MEDS: traMADol 50 MG Tab PO PRN (15:22)
[2016-09-02] MEDS: Famotidine 20 MG/2 ML SDV IVPUSH SCH (16:05)
--- NOTE | 2016-09-02 17:32 | PCM.PN ---
- General Info Date of Service: 09/02/16 Admission Dx/Problem (Free Text): abdominal pain peritonitis Functional Status: Reports: pain controlled, tolerating diet, ambulating - Review of Systems General: Reports: No Symptoms HEENT: Reports: no symptoms Pulmonary: Reports: no symptoms Cardiovascular: Reports: No Symptoms Gastrointestinal: Reports: No symptoms Genitourinary: Reports: no symptoms Musculoskeletal: Reports: no symptoms Skin: Reports: no symptoms Neurological: Reports: No Symptoms Psychiatric: Reports: no symptoms - Patient Data Vitals - most recent: Last Vital Signs Temp 96.9 F 09/02/16 16:00 Pulse 60 09/02/16 16:00 Resp 24 H 09/02/16 16:00 BP 126/82 09/02/16 16:00 Pulse Ox 98 09/02/16 16:19 Weight - most recent: 213 lb I&O - last 24 hours: Intake & Output 09/02/16 09/02/16 09/02/16 06:59 14:59 22:59 Intake Total 550 2040 210 Balance 550 2040 210 Lab Results last 24 hrs: Laboratory Results - last 24 hr 09/02/16 09/02/16 Range/Units 07:08 07:08 WBC 6.4 (4.0-10.2) K/uL RBC 4.97 (4.33-5.41) M/uL Hgb 14.7 (13.1-16.8) g/dL Hct 43.9 (39.0-49.0) % MCV 88.3 (84.0-98.0) fL MCH 29.6 (28.2-33.3) pg MCHC 33.5 (31.7-36.0) g/dL RDW 13.2 (11.2-14.1) % Plt Count 123 L (150-350) K/uL Neut % (Auto) 53.8 (45.0-80.0) % Lymph % (Auto) 35.1 (10.0-50.0) % [place] % (Auto) 8.6 (2.0-14.0) % Eos % (Auto) 2.0 (0.0-5.0) % Baso % (Auto) 0.5 (0.0-2.0) % Neut # (Auto) 3.42 (1.40-7.00) K/uL Lymph # (Auto) 2.23 (0.50-3.50) K/uL [place] # (Auto) 0.55 (0.00-1.00) K/uL Eos # (Auto) 0.13 (0.00-0.50) K/uL Baso # (Auto) 0.03 (0.00-0.20) K/uL Sodium 140 (136-145) mmol/L Potassium 4.1 (3.5-5.1) mmol/L Chloride 104 (98-107) mmol/L Carbon Dioxide 31.5 (21.0-32.0) mmol/L BUN 12 (7-18) mg/dL Creatinine 1.26 H (0.51-1.17) mg/dL Est Cr Clr Drug Dosing 95.45 mL/min Estimated GFR (MDRD) > 60 mL/min Glucose 97 (74-106) mg/dL Calcium 9.2 (8.5-10.1) mg/dL Total Bilirubin 0.6 (0.2-1.0) mg/dL AST 18 (15-37) U/L ALT 26 (12-78) U/L Alkaline Phosphatase 68 (46-116) IU/L Total Protein 7.4 (6.4-8.2) g/dL Albumin 3.8 (3.4-5.0) g/dL Amylase 32 (25-115) U/L Lipase 102 (73-393) U/L Emiliano Results last 24 hrs: Microbiology 09/01/16 19:50 Stool Occult Blood (EMILIANO) - Final Stool / Feces NEGATIVE OCCULT BLOOD Med Orders - Current: Current Medications Acetaminophen (Tylenol) 650 mg PO Q4H PRN PRN Reason: Pain Last Admin: 09/02/16 15:21 Dose: 650 mg Famotidine (Pepcid) 20 mg IVPUSH Q12H [facility] Last Admin: 09/02/16 16:05 Dose: 20 mg Hydromorphone HCl (Dilaudid) 1 mg IVPUSH Q6H PRN PRN Reason: Pain (severe 7-10) Ceftriaxone Sodium 1 gm/ (Sodium Chloride) 100 mls @ 200 mls/hr IV Q12H [facility] Last Admin: 09/02/16 15:20 Dose: 200 mls/hr Metronidazole 500 mg/ Premix 100 mls @ 100 mls/hr IV Q8H [facility] Last Admin: 09/02/16 16:05 Dose: 100 mls/hr Ondansetron HCl (Zofran) 4 mg IVPUSH Q6H PRN PRN Reason: Nausea/Vomiting Pantoprazole Sodium (Protonix Iv) 40 mg IVPUSH Q12H [facility] Sodium Chloride (Saline Flush) 10 ml FLUSH ASDIRECTED PRN PRN Reason: Keep Vein Open Last Admin: 09/02/16 16:06 Dose: 10 ml Sodium Chloride (Saline Flush) 10 ml FLUSH Q12HR [facility] Last Admin: 09/02/16 07:43 Dose: 10 ml Temazepam (Restoril) 15 mg PO DAILY@2000 PRN PRN Reason: Insomnia Tramadol HCl (Ultram) 50 mg PO Q6H PRN PRN Reason: Pain (moderate 4-6) Last Admin: 09/02/16 15:22 Dose: 50 mg Discontinued Medications Famotidine (Pepcid) 40 mg IVPUSH ONETIME ONE Stop: 09/01/16 14:01 Last Admin: 09/01/16 14:32 Dose: 40 mg Iopamidol (Isovue-300 (61%)) 100 ml IVPUSH ONETIME ONE Stop: 09/01/16 14:29 Last Admin: 09/01/16 15:32 Dose: 100 ml Iopamidol (Isovue-300 (61%)) Confirm Administered Dose 100 ml .ROUTE .STK-MED ONE Stop: 09/01/16 15:03 Last Admin: 09/01/16 16:13 Dose: Not Given Pantoprazole Sodium (Protonix Iv) 40 mg IVPUSH ONETIME ONE Stop: 09/01/16 14:01 Last Admin: 09/01/16 14:32 Dose: 40 mg - Exam General: alert, oriented HEENT: Pupils equal, Pupils reactive, EOMI, Mucous membr. moist/pink Neck: supple Lungs: Clear to auscultation, Normal respiratory effort Cardiovascular: Regular Rate, Regular Rhythm Abdomen: bowel sounds present, rebound, guarding, tenderness (lt lower quadrant) . No: distension, abnormal bowel sounds, CVA tenderness, organomegaly (Male) Exam: Deferred Back Exam: Normal Inspection, Full Range of Motion Extremities: no edema Skin: warm, dry, intact Neurological: no new focal deficit Psy/Mental Status: alert, normal affect, normal mood - Problem List Review Problem List Initiated/Reviewed/Updated: Yes - My Orders Last 24 Hours: My Active Orders 09/02/16 Dinner Regular Diet [DIET] - Assessment Assessment:: abdominal pain peritonis vs diverticulitis vscolitis - Plan Plan:: continue antibiotic IV for 24 more hours. PT improvingadvance dietstoday.
[2016-09-02] MEDS: Pantoprazole 40 MG Vial IVPUSH SCH (20:47)
[2016-09-03] MEDS: cefTRIAXone 1 GM in Sodium Chloride 0.9% 100 ML IV SCH ×2 (03:03→13:19)
[2016-09-03] MEDS: Sodium Chloride 0.9% 10 ML Syringe FLUSH PRN ×3 (03:05→08:52)
[2016-09-03] MEDS: Famotidine 20 MG/2 ML SDV IVPUSH SCH (03:35)
[2016-09-03] MEDS: metroNIDAZOLE/Normal Saline 500 MG in Premix Bag 1 BAG IV SCH (07:42)
[2016-09-03] MEDS: Sodium Chloride 0.9% 10 ML Syringe FLUSH SCH (07:43)
[2016-09-03 07:50] VITALS: BP 122/79
[2016-09-03] MEDS: traMADol 50 MG Tab PO PRN (07:52)
[2016-09-03] MEDS: Pantoprazole 40 MG Vial IVPUSH SCH (08:52)
[2016-09-03] MEDS: Acetaminophen 325 MG Tab PO PRN (09:02)
[2016-09-03] MEDS ORDERED: methylPREDNISolone Sodium Succinate 125 MG/2 ML SDV IV ONE (12:35)
--- NOTE | 2016-09-03 12:41 | PCM.DCSUM1 ---
Discharge Summary - Hospital Course HPI Initial Comments: Patient is a 26-year-old who was admitted to the hospital with acute onset of abdominal pain possible colitis versus peritonitis versus diverticulitis CT showed edema of the mucosa which goes more with colitis we continue antibiotics and added steroids to treatment at this time patient would like to go home will discharge him on antibiotics and prednisone 20 mg by mouth daily patient will be seen in clinic in 3 days we will refer him to gastroenterology at that time - Discharge Data Discharge Date: 09/03/16 Discharge Disposition: Home, Self-Care 01 Condition: Good - Discharge Diagnosis/Problem(s) (1) Colitis SNOMED Code(s): 76586105 ICD Code: K52.9 - NONINFECTIVE GASTROENTERITIS AND COLITIS, UNSPECIFIED Status: Acute Priority: High Current Visit: Yes Problem Details: History of recurrent sigmoid colitis versus questionable diverticulitis initially diagnosed by CT scan on 12/29/13. Note recent EGD and colonoscopy results as above. Therapy initiated in the emergency room as above. No family history of inflammatory bowel disease with no colonic biopsies taken to this point. Consider GI referral for further consultation and possible colonic biopsies and treatment at discharge depending on his clinical course. Patient may benefit from IV Solu-Medrol therapy, however this will be held for the time being. He may also benefit from a trial on sulfasalazine, etc. secondary to his recurrent colitis/diverticulitis (2) Abdominal pain SNOMED Code(s): 14609287 ICD Code: R10.9 - UNSPECIFIED ABDOMINAL PAIN Status: Acute Priority: High Current Visit: Yes Onset Date: 08/31/16 Problem Details: CT scan results as above. Evidence of beginning peritonitis by clinical exam on initial evaluation by me in the emergency room. Various therapeutic options were discussed with the patient, who does agree to inpatient therapy. Secondary to clinical findings IV Rocephin and IV Flagyl were initiated in the emergency room. Blood cultures 2 were collected. No leukocytosis to this point however peritoneal findings as above. Repeat blood work in the a.m. with consideration of abdominal x-rays prior to discharge Qualifiers: Abdominal location: left lower quadrant Qualified Code(s): R10.32 - Left lower quadrant pain (3) Diverticulitis large intestine SNOMED Code(s): 1021591 ICD Code: K57.32 - DVTRCLI OF LG INT W/O PERFORATION OR ABSCESS W/O BLEEDING Status: Acute Priority: High Current Visit: Yes Onset Date: ~08/31/16 Problem Details: Diverticulitis versus colitis as above. Qualifiers: Diverticulitis bleeding: without bleeding Diverticulitis complication: without perforation or abscess Qualified Code(s): K57.32 - Diverticulitis of large intestine without perforation or abscess without bleeding (4) Peritonitis SNOMED Code(s): 88531284, 48137126, 393645496 ICD Code: K65.9 - PERITONITIS, UNSPECIFIED Status: Acute Priority: High Current Visit: Yes Onset Date: 09/01/16 Problem Details: As above (5) Peptic reflux disease SNOMED Code(s): 42099235 ICD Code: K21.9 - GASTRO-ESOPHAGEAL REFLUX DISEASE WITHOUT ESOPHAGITIS Status: Chronic Priority: Medium Current Visit: Yes Problem Details: No true GERD symptoms at this time, although high-dose IV Pepcid and IV Protonix were given in the emergency room as GI prophylaxis - Discharge Plan Prescriptions/Med Rec: metroNIDAZOLE [Flagyl] 500 mg PO Q8H #30 tablet predniSONE 20 mg PO DAILY #10 tablet Home Medications: Home Meds Ciprofloxacin HCl 500 mg PO BID 09/01/16 [History] metroNIDAZOLE [Flagyl] 500 mg PO Q8H #30 tablet 09/03/16 [Rx] predniSONE 20 mg PO DAILY #10 tablet 09/03/16 [Rx] Patient Handouts: Abdominal Pain, Adult, Colitis, Peritonitis, Diverticulitis Forms: ED Department Discharge Referrals: Lexy Swan PA [Primary Care Provider] - - Patient Data Vitals - Most Recent: Last Vital Signs Temp 97.6 F 09/03/16 07:48 Pulse 87 09/03/16 07:48 Resp 14 09/03/16 07:48 BP 122/79 09/03/16 07:48 Pulse Ox 98 09/03/16 07:48 Weight - Most Recent: 215 lb 6.4 oz I&O - Last 24 hours: Intake & Output 09/02/16 09/03/16 09/03/16 22:59 06:59 14:59 Intake Total 1160 1900 Output Total 250 Balance 1160 -250 1900 Med Orders - Current: Current Medications Acetaminophen (Tylenol) 650 mg PO Q4H PRN PRN Reason: Pain Last Admin: 09/03/16 09:02 Dose: 650 mg Famotidine (Pepcid) 20 mg IVPUSH Q12H [facility] Last Admin: 09/03/16 03:35 Dose: 20 mg Hydromorphone HCl (Dilaudid) 1 mg IVPUSH Q6H PRN PRN Reason: Pain (severe 7-10) Ceftriaxone Sodium 1 gm/ (Sodium Chloride) 100 mls @ 200 mls/hr IV Q12H [facility] Last Admin: 09/03/16 03:03 Dose: 200 mls/hr Metronidazole 500 mg/ Premix 100 mls @ 100 mls/hr IV Q8H [facility] Last Admin: 09/03/16 07:42 Dose: 100 mls/hr Methylprednisolone Sodium Succinate (Solu-Medrol) 125 mg IV ONETIME ONE Stop: 09/03/16 12:36 Ondansetron HCl (Zofran) 4 mg IVPUSH Q6H PRN PRN Reason: Nausea/Vomiting Pantoprazole Sodium (Protonix Iv) 40 mg IVPUSH Q12H [facility] Last Admin: 09/03/16 08:52 Dose: 40 mg Sodium Chloride (Saline Flush) 10 ml FLUSH ASDIRECTED PRN PRN Reason: Keep Vein Open Last Admin: 09/03/16 08:52 Dose: 10 ml Sodium Chloride (Saline Flush) 10 ml FLUSH Q12HR [facility] Last Admin: 09/03/16 07:43 Dose: 10 ml Temazepam (Restoril) 15 mg PO DAILY@2000 PRN PRN Reason: Insomnia Tramadol HCl (Ultram) 50 mg PO Q6H PRN PRN Reason: Pain (moderate 4-6) Last Admin: 09/03/16 07:52 Dose: 50 mg Discontinued Medications Famotidine (Pepcid) 40 mg IVPUSH ONETIME ONE Stop: 09/01/16 14:01 Last Admin: 09/01/16 14:32 Dose: 40 mg Iopamidol (Isovue-300 (61%)) 100 ml IVPUSH ONETIME ONE Stop: 09/01/16 14:29 Last Admin: 09/01/16 15:32 Dose: 100 ml Iopamidol (Isovue-300 (61%)) Confirm Administered Dose 100 ml .ROUTE .STK-MED ONE Stop: 09/01/16 15:03 Last Admin: 09/01/16 16:13 Dose: Not Given Pantoprazole Sodium (Protonix Iv) 40 mg IVPUSH ONETIME ONE Stop: 09/01/16 14:01 Last Admin: 09/01/16 14:32 Dose: 40 mg *Q Meaningful Use (DIS) - VTE *Q VTE Criteria *Q: - Stroke *Q Stroke Criteria *Q: - AMI *Q AMI Criteria *Q:
--- NOTE | 2016-09-03 12:44 | PCM.PN ---
- General Info Date of Service: 09/03/16 Functional Status: Reports: pain controlled, tolerating diet - Review of Systems General: Reports: No Symptoms HEENT: Reports: no symptoms Pulmonary: Reports: no symptoms Cardiovascular: Reports: No Symptoms Gastrointestinal: Reports: Abdominal pain (Left lower quadrant) Genitourinary: Reports: no symptoms Musculoskeletal: Reports: no symptoms Skin: Reports: no symptoms Neurological: Reports: No Symptoms Psychiatric: Reports: no symptoms - Patient Data Vitals - most recent: Last Vital Signs Temp 97.6 F 09/03/16 07:48 Pulse 87 09/03/16 07:48 Resp 14 09/03/16 07:48 BP 122/79 09/03/16 07:48 Pulse Ox 98 09/03/16 07:48 Weight - most recent: 215 lb 6.4 oz I&O - last 24 hours: Intake & Output 09/02/16 09/03/16 09/03/16 22:59 06:59 14:59 Intake Total 1160 1900 Output Total 250 Balance 1160 -250 1900 Med Orders - Current: Current Medications Acetaminophen (Tylenol) 650 mg PO Q4H PRN PRN Reason: Pain Last Admin: 09/03/16 09:02 Dose: 650 mg Famotidine (Pepcid) 20 mg IVPUSH Q12H [facility] Last Admin: 09/03/16 03:35 Dose: 20 mg Hydromorphone HCl (Dilaudid) 1 mg IVPUSH Q6H PRN PRN Reason: Pain (severe 7-10) Ceftriaxone Sodium 1 gm/ (Sodium Chloride) 100 mls @ 200 mls/hr IV Q12H [facility] Last Admin: 09/03/16 03:03 Dose: 200 mls/hr Metronidazole 500 mg/ Premix 100 mls @ 100 mls/hr IV Q8H [facility] Last Admin: 09/03/16 07:42 Dose: 100 mls/hr Methylprednisolone Sodium Succinate (Solu-Medrol) 125 mg IV ONETIME ONE Stop: 09/03/16 12:36 Ondansetron HCl (Zofran) 4 mg IVPUSH Q6H PRN PRN Reason: Nausea/Vomiting Pantoprazole Sodium (Protonix Iv) 40 mg IVPUSH Q12H [facility] Last Admin: 09/03/16 08:52 Dose: 40 mg Sodium Chloride (Saline Flush) 10 ml FLUSH ASDIRECTED PRN PRN Reason: Keep Vein Open Last Admin: 09/03/16 08:52 Dose: 10 ml Sodium Chloride (Saline Flush) 10 ml FLUSH Q12HR [facility] Last Admin: 09/03/16 07:43 Dose: 10 ml Temazepam (Restoril) 15 mg PO DAILY@2000 PRN PRN Reason: Insomnia Tramadol HCl (Ultram) 50 mg PO Q6H PRN PRN Reason: Pain (moderate 4-6) Last Admin: 09/03/16 07:52 Dose: 50 mg Discontinued Medications Famotidine (Pepcid) 40 mg IVPUSH ONETIME ONE Stop: 09/01/16 14:01 Last Admin: 09/01/16 14:32 Dose: 40 mg Iopamidol (Isovue-300 (61%)) 100 ml IVPUSH ONETIME ONE Stop: 09/01/16 14:29 Last Admin: 09/01/16 15:32 Dose: 100 ml Iopamidol (Isovue-300 (61%)) Confirm Administered Dose 100 ml .ROUTE .STK-MED ONE Stop: 09/01/16 15:03 Last Admin: 09/01/16 16:13 Dose: Not Given Pantoprazole Sodium (Protonix Iv) 40 mg IVPUSH ONETIME ONE Stop: 09/01/16 14:01 Last Admin: 09/01/16 14:32 Dose: 40 mg - Exam General: alert, oriented HEENT: Pupils equal, Pupils reactive, EOMI, Mucous membr. moist/pink Neck: supple Lungs: Clear to auscultation, Normal respiratory effort Cardiovascular: Regular Rate, Regular Rhythm Abdomen: bowel sounds present, soft, no distension, tenderness (Left lower quadrant improving) (Male) Exam: No Hernia, Normal Inspection, Normal Prostate, Circumcised Back Exam: Normal Inspection, Full Range of Motion Extremities: no edema Skin: warm, dry, intact Wound/Incisions: healing well Neurological: no new focal deficit Psy/Mental Status: alert, normal affect, normal mood - Problem List & Annotations (1) Colitis SNOMED Code(s): 72250806 Code(s): K52.9 - NONINFECTIVE GASTROENTERITIS AND COLITIS, UNSPECIFIED Status: Acute Priority: High Current Visit: Yes Annotation/Comment:: History of recurrent sigmoid colitis versus questionable diverticulitis initially diagnosed by CT scan on 12/29/13. Note recent EGD and colonoscopy results as above. Therapy initiated in the emergency room as above. No family history of inflammatory bowel disease with no colonic biopsies taken to this point. Consider GI referral for further consultation and possible colonic biopsies and treatment at discharge depending on his clinical course. Patient may benefit from IV Solu-Medrol therapy, however this will be held for the time being. He may also benefit from a trial on sulfasalazine, etc. secondary to his recurrent colitis/diverticulitis (2) Abdominal pain SNOMED Code(s): 61284108 Code(s): R10.9 - UNSPECIFIED ABDOMINAL PAIN Status: Acute Priority: High Current Visit: Yes Onset Date: 08/31/16 Qualifiers: Abdominal location: left lower quadrant Qualified Code(s): R10.32 - Left lower quadrant pain Annotation/Comment:: CT scan results as above. Evidence of beginning peritonitis by clinical exam on initial evaluation by me in the emergency room. Various therapeutic options were discussed with the patient, who does agree to inpatient therapy. Secondary to clinical findings IV Rocephin and IV Flagyl were initiated in the emergency room. Blood cultures 2 were collected. No leukocytosis to this point however peritoneal findings as above. Repeat blood work in the a.m. with consideration of abdominal x-rays prior to discharge (3) Diverticulitis large intestine SNOMED Code(s): 0560056 Code(s): K57.32 - DVTRCLI OF LG INT W/O PERFORATION OR ABSCESS W/O BLEEDING Status: Acute Priority: High Current Visit: Yes Onset Date: ~08/31/16 Qualifiers: Diverticulitis bleeding: without bleeding Diverticulitis complication: without perforation or abscess Qualified Code(s): K57.32 - Diverticulitis of large intestine without perforation or abscess without bleeding Annotation/Comment:: Diverticulitis versus colitis as above. (4) Peritonitis SNOMED Code(s): 30715612, 80032263, 298724237 Code(s): K65.9 - PERITONITIS, UNSPECIFIED Status: Acute Priority: High Current Visit: Yes Onset Date: 09/01/16 Annotation/Comment:: As above (5) Peptic reflux disease SNOMED Code(s): 47585167 Code(s): K21.9 - GASTRO-ESOPHAGEAL REFLUX DISEASE WITHOUT ESOPHAGITIS Status: Chronic Priority: Medium Current Visit: Yes Annotation/Comment:: No true GERD symptoms at this time, although high-dose IV Pepcid and IV Protonix were given in the emergency room as GI prophylaxis - Problem List Review Problem List Initiated/Reviewed/Updated: Yes - My Orders Last 24 Hours: My Active Orders 09/02/16 Dinner Regular Diet [DIET] 09/03/16 08:00 Vital Signs [RC] PER UNIT ROUTINE 09/03/16 12:35 methylPREDNISolone Sod Succ [Solu-MEDROL] 125 mg IV ONETIME ONE - Assessment Assessment:: abdominal pain peritonis vs diverticulitis vscolitis - Plan Plan:: continue antibiotic IV for 24 more hours. PT improving[facility] dietstoday.
== END 2016-09-03 14:30 | disposition home or self-care (01) | DRG 249 ==
LOC: LL.ED 13:27 → LL.MS 16:11
PROVIDERS: ADMIT Family Medicine; ATTEND Family Medicine
DX: K52.9 Noninfective gastroenteritis and colitis, unspecified (principal); K65.9 Peritonitis, unspecified; K57.32 Diverticulitis of large intestine without perforation or abscess without bleeding; K21.9 Gastro-esophageal reflux disease without esophagitis; E79.0 Hyperuricemia without signs of inflammatory arthritis and tophaceous disease
CPT/HCPCS: 36415; 74022; 74177; 80053; 81001; 82150; 82272; 83605; 83690; 83735; 84550; 85025; 85610; 85730; 86038; 86431; 87040; 87086; 87338; 87493; 96365; 96367; 96375; 99285; A9270-GY; C9113; J0696; J2930; J7050; Q9967; S0028